=== PATIENT | male | born 1960 | race Caucasian/White ===

== ENCOUNTER 2020-10-23 10:15 | Emergency (ER) | payer OTHER, SELFPAY ==
--- NOTE | ~2020-10-23 | CT_ITS ---
EXAMINATION: CT abdomen pelvis wo con DATE: 10/23/2020 11:17 INDICATION: Left flank pain for one hour. History kidney stones. TECHNIQUE: Computed tomography (CT) of the abdomen and pelvis was performed without intravenous contr ast. Automated exposure control and iterative reconstruction technique were employed. Exam dose: 264 .74 mGy-cm total exam DLP. COMPARISON: 07/01/[address] abdomen pelvis FINDINGS: The lung bases are clear. Heart size is within normal limits. No pericardial or pleural eff usion. The liver, gallbladder, bile ducts, pancreas and pancreatic duct and spleen are unremarkable. Normal morphology of the adrenal glands. 5 mm nonobstructing mid left renal calculus. 6 mm nonobstructing lower pole left renal calculus. No right renal or left or right ureteral calculus or hydroureteronephrosis of either kidney. The urin xavier bladder appears unremarkable. Mild prostate enlargement and calcification. There is atherosclerotic calcification of the abdominal aorta and iliac arteries. No aneurysm is note d; the infrarenal abdominal aorta measures up to approximately 2.6 cm diameter. No intraperitoneal or retroperitoneal or pelvic mass lesion or adenopathy or ascites. No bowel obstruction, bowel wall thickening, pneumatosis or intraperitoneal free air. Normal appendix . No suspicious osteolytic or osteoblastic lesions are noted. There are degenerative changes of the tho racic and lumbar spine.. IMPRESSION: Nonobstructive left nephrolithiasis Reviewed, dictated and finalized at [facility]. Reviewed, dictated and finalized at [facility]. SNAKER
[2020-10-23 10:25] VITALS: BP 192/96; PULSE 64; RESP 18; TEMP 36.7; O2SAT 100
[2020-10-23 10:37] LABS: Hematocrit 41.9 % (42.0-52.0); Hemoglobin 14.8 g/dL (14.0-18.0); Immature Granulocyte Percent A 0.3 % (0-0.5); Lymphocytes Percent Auto 24.4 % (18.3-44.2); Mean Corpuscular HGB Conc 35.3 g/dl (32-36); Mean Corpuscular Hemoglobin 32.2 pg (26-34); Mean Corpuscular Volume 91.1 fl (80-100); Mean Platelet Volume 8.4 fl (7.4-10.4); Monocytes Percent Auto 9.4 % (2.6-8.5); Platelet Count Result 281 k/mm3 (150-375); Red Cell Distribution Width 12.9 % (11.5-14.5)
[2020-10-23 10:38] LABS: Basophils Absolute Auto 0.1 K/mm3 (0.0-0.1); Basophils Percent Auto 0.8 % (0.2-1.2); Eosinophils Absolute Auto 0.1 K/mm3 (0-0.3); Eosinophils Percent Auto 1.1 % (0-4.4); Immature Granulocyte Absolute 0.02 K/mm3 (0.00-0.031); Lymphocytes Absolute Auto 1.95 K/mm3 (0.9-3.2); Monocytes Absolute Auto 0.8 K/mm3 (0.1-0.6); Neutrophils Absolute Auto 5.1 K/mm3 (1.3-6.7)
[2020-10-23 10:52] LABS: Anion Gap 7 mmol/L (8-16); Blood Urea Nitrogen 12 mg/dL (9-20); Calcium 8.2 mg/dL (8.4-10.2); Carbon Dioxide 25 mmol/L (22-30); Chloride 106 mmol/L (98-107); Estimated CRCL calculation 85 ml/min; Estimated Glomerular Filt Rate > 60; Glucose 148 mg/dL (75-110); Potassium 4.2 mmol/L (3.4-5.0); Sodium 138 mmol/L (137-145)
--- NOTE | 2020-10-23 11:01 | ED.ABDPAIN ---
HPI - Abdominal Pain General Chief Complaint: Abdominal Pain Stated Complaint: lt flank pain, poss kidney stone Time Seen by Provider: 10/23/20 10:50 Source: patient Mode of arrival: ambulatory Limitations: no limitations History of Present Illness HPI narrative: This is a 60-year-old male that presents the emergency department for intermittent left flank pain over the last couple of hours. Reports history of kidney stones and that this feels similar. Reports intermittent, sharp pains in the left flank that radiate to the left side of the abdomen. Associated with nausea. Denies fever, vomiting, dysuria, hematuria. Related Data Allergies Allergy/AdvReac Type Severity Reaction Status Date / Time No Known Allergies Allergy Unknown Unverified 01/21/19 15:18 Review of Systems Review of Systems: Narrative: CONSTITUTIONAL: Denies fever GASTROINTESTINAL: Reports abdominal pain, nausea. Denies vomiting GENITOURINARY: Denies dysuria or hematuria. All systems reviewed & are unremarkable except as noted in HPI and below PMFSH Past Medical History Medical History (Updated 10/23/20 @ 13:23 by Cristin Otto PA-C) History of coronary artery disease History of hyperlipidemia History of hypertension Surgical History Surgical History (Updated 10/23/20 @ 11:03 by Cristin Otto PA-C) History of coronary artery stent placement Social History Social History (Updated 10/23/20 @ 11:03 by Cristin Otto PA-C) Smoking status: Current every day smoker Exam Narrative: Exam Narrative: GENERAL: Well-appearing, well-nourished, and in no acute distress. HEAD: Normocephalic, atraumatic. EYES: EOMI. CHEST: Clear to auscultation. No respiratory distress. No wheezes rales or rhonchi HEART: Regular rate and rhythm. No murmur heard. Normal peripheral pulses. ABDOMEN: Soft, nondistended, normal active bowel sounds. Mild tenderness to palpation throughout the left side of the abdomen, without guarding. No CVA tenderness EXTREMITIES: Normal range of motion. No edema. SKIN: Warm, dry, no rash. NEURO: No focal deficits. Alert and oriented x3. PSYCH: Normal mood and affect Course Vital Signs Vital signs: Vital Signs Temperature 98.1 F 10/23/20 10:25 Pulse Rate 64 10/23/20 10:25 Respiratory Rate 18 10/23/20 10:25 Blood Pressure 192/96 H 10/23/20 10:25 Pulse Oximetry 100 10/23/20 10:25 Temperature 98.1 F 10/23/20 10:25 Pulse Rate 64 10/23/20 10:25 Respiratory Rate 18 10/23/20 10:25 Blood Pressure 192/96 H 10/23/20 10:25 Pulse Oximetry 100 10/23/20 10:25 MDM - Abdominal Pain MDM Narrative Medical decision making narrative: Patient presents emergency department for left-sided flank pain that had started a couple hours prior to arrival. He is afebrile and nontoxic-appearing. Blood pressure elevated on arrival, this improved after pain medication administration. CBC is without leukocytosis. Metabolic panel without concerning findings. Patient does have red blood cells in the urine and 7-9 white blood cells. No leuk esterase or nitrates. He did have glucose in the urine, but his hemoglobin A1c was normal. CT scan of the abdomen and pelvis shows nonobstructive left nephrolithiasis. Patient reports his pain is now gone. He is stable and felt appropriate for the outpatient evaluation. Will be given urology for follow-up. Was given warnings to return to the ER Lab Data Attestation: I reviewed the patient's lab results. Result diagrams: 10/23/20 10:31 10/23/20 10:31 Labs: Lab Results 10/23/20 10/23/20 10/23/20 Range/Units 10:31 10:31 10:31 WBC 8.0 (4.5-10.0) K/mm3 RBC 4.60 (4.6-6.20) M/mm3 Hgb 14.8 (14.0-18.0) g/dL Hct 41.9 L (42.0-52.0) % MCV 91.1 (80-100) fl MCH 32.2 (26-34) pg MCHC 35.3 (32-36) g/dl RDW 12.9 (11.5-14.5) % Plt Count 281 (150-375) k/mm3 MPV 8.4 (7.4-10.4) fl Immature Gran % (Auto) 0.3
[2020-10-23] MEDS: ONDANSETRON INJ 4 MG/2 ML VIAL IV PUSH (11:09)
[2020-10-23] MEDS: SODIUM CHLORIDE 0.9% IV 1,000 ML 999 ML IV CONT (11:09)
[2020-10-23] MEDS: MORPHINE SULFATE (*CRX) 4 MG/ML INJ IV PUSH (11:09)
[2020-10-23 12:19] LABS: Add Urine Microscopic? YES; Appearance Urine Clear (Clear); Bilirubin Urine Negative (Negative); Blood Urine 2+ (Negative); Color Urine Yellow (Yellow); Glucose Urine UA 3+ mg/dL (Negative); Ketones Urine Negative (Negative); Leukocyte Esterase Ur Negative LEU/UL (Negative); Mucus Urine Rare /lpf; Nitrate Urine Negative (Negative); Protein Urine Negative (Negative); RBC Urine >75 /hpf (0-2); Specific Grav Ur 1.025 (1.001-1.035); Urobilinogen Urine Negative mg/dL (<2.0)
[2020-10-23 12:58] LABS: Hemoglobin A1C 5.6 % (<5.7)
[2020-10-23 13:32] VITALS: BP 140/72; PULSE 60; RESP 16; O2SAT 97
[2020-10-23 13:42] VITALS: BP 140/72; PULSE 60; RESP 14; O2SAT 97
== END 2020-10-23 13:40 | disposition home or self-care (01) ==
PROVIDERS: Physician Assistant; Emergency Provider Emergency Medicine; PCP Internal Medicine
DX: N20.0 Calculus of kidney (principal); I25.10 Atherosclerotic heart disease of native coronary artery without angina pectoris; E78.5 Hyperlipidemia, unspecified; I10 Essential (primary) hypertension; Z95.5 Presence of coronary angioplasty implant and graft; F17.200 Nicotine dependence, unspecified, uncomplicated
CPT/HCPCS: 36415; 74176; 80048; 81001; 83036; 85025; 87086; 96361; 96365; 96375; 99284; J0131; J2270; J2405; J7030

== ENCOUNTER 2020-11-05 13:46 | Inpatient (IN) | payer OTHER, SELFPAY ==
--- NOTE | ~2020-11-05 | XR_ITS ---
EXAMINATION: XR retrograde pyelo w/stent LT EXAM DATE: 11/06/2020 12:46 INDICATION: Left-sided pyelogram. TECHNIQUE: Fluoroscopy used during XR retrograde pyelo w/stent LT performed by Dr. Miguel Angel retana MD. The DAP for this procedure was 201 radcm2. FINDINGS: The left ureter was cannulated and injected. A double-J ureteral stent was positioned. Co rrelate with procedure note. IMPRESSION: Fluoroscopy used during XR retrograde pyelo w/stent LT. Reviewed, dictated and finalized at location [facility]. PATIONAL THERAPY DEPARTMENT CHAIR
--- NOTE | ~2020-11-05 | XR_ITS ---
EXAMINATION: XR abdomen/kub 1V INDICATION: Left urolithiasis and left flank pain TECHNIQUE: Supine views of the abdomen were obtained on 2 radiographs. COMPARISON: CT from today FINDINGS: The known left proximal ureteral stone appears to project just below the left L4 transverse process. Known left nephrolithiasis is not seen. There is partial opacification of the right-sided c ollecting system and bladder by contrast from earlier CT examination. Mild hip osteoarthritis is note d. The bowel gas pattern is normal. IMPRESSION: 1. Known left ureteral stone appears to project below the left L4 transverse process. Reviewed, dictated and finalized at location A. ECT DEVELOPMENT COORDINATOR IMPRESSION: 1. Known left ureteral stone appears to project below the left L4 transverse pr ocess.
--- NOTE | ~2020-11-05 | CT_ITS ---
EXAMINATION: CT abdomen pelvis wo/w con DATE: 11/05/2020 18:05 INDICATION: Left flank pain and hematuria TECHNIQUE: Computed tomography (CT) of the abdomen and pelvis was performed without intravenous contr ast. CT of the abdomen and pelvis was then performed with a total of 130 mL Omnipaque 350 intravenous contrast using a double-bolus technique for simultaneous opacification of the renal parenchyma and r enal collecting system. The dose-length product (DLP) was 1575.19 mGy-cm. Automated exposure control and iterative reconstruction technique were employed. COMPARISON: 10/23/2020 FINDINGS: The lung bases are clear. The heart size is normal. The liver, spleen, pancreas, gallbladde r, and adrenal glands are normal. There is a 7 mm stone in the left proximal ureter which causes mode rate left hydronephrosis. There is no appreciable contrast in the left collecting system. No suspicio us renal or urothelial lesion is identified. No stones are present in the right kidney, the right ure ter, or the bladder. There is a 6 mm nonobstructing stone of the left kidney lower pole. There is henry cified atherosclerosis of the aorta and many of the other arteries. No pathologically enlarged abdomi nal or pelvic lymph nodes are identified. The appendix is normal. There is moderate lumbar spondylosi s at L4-5. IMPRESSION: 1. Left proximal ureteral stone with obstructive uropathy. 2. Nonobstructing left nephrolithiasis. Reviewed, dictated and finalized at location A. ING TYPIST
--- NOTE | ~2020-11-05 | US_ITS ---
EXAMINATION: US carotid duplex BI DATE: 11/06/2020 15:23 INDICATION: Left carotid bruit TECHNIQUE: Grayscale, color Doppler, and pulsed Doppler images of the cervical carotid arteries were obtained. The degree of vessel stenosis is placed in one of the following categories: normal, <50%, 5 0-69%, >=70% but less than near-occlusion, near-occlusion, or total occlusion. Note that percent sten osis relative to normal distal artery lumen diameter is indirectly measured from velocity measurement s as described by Frank, et al. Radiology 2003; 229:340-346. COMPARISON: None. FINDINGS: RIGHT: The right common carotid artery (CCA) peak systolic velocity (PSV) is 96 cm/s. The right internal car otid artery (ICA) PSV is 81 cm/s. The right ICA end-diastolic velocity (EDV) is 22 cm/s. The right IC A/CCA PSV ratio is 0.8. Grayscale and color Doppler images yield an estimate of <50% diameter reducti on from plaque in the ICA. The external carotid artery (ECA) PSV is 70 cm/s. There is antegrade flow in the right vertebral artery. LEFT: The left CCA PSV is 126 cm/s. The left ICA PSV is 193 cm/s. The left ICA EDV is 42 cm/s. The left ICA /CCA PSV ratio is 1.5. Grayscale and color Doppler images yield an estimate of 50-69% diameter reduct ion from plaque in the ICA. The ECA PSV is 88 cm/s. There is antegrade flow in the left vertebral art anita. IMPRESSION: 1. <50% stenosis in the right internal carotid artery. 2. 50-69% stenosis in the left internal carotid artery. Reviewed, dictated and finalized at location A. RECT SALES EXEC
[2020-11-05 14:00] VITALS: BP 185/105; PULSE 85; RESP 16; TEMP 36.6; O2SAT 100
[2020-11-05 14:25] LABS: Basophils Absolute Auto 0.1 K/mm3 (0.0-0.1); Basophils Percent Auto 0.7 % (0.2-1.2); Eosinophils Absolute Auto 0.1 K/mm3 (0-0.3); Eosinophils Percent Auto 0.7 % (0-4.4); Hemoglobin 14.1 g/dL (14.0-18.0); Immature Granulocyte Absolute 0.04 K/mm3 (0.00-0.031); Immature Granulocyte Percent A 0.4 % (0-0.5); Lymphocytes Percent Auto 20.7 % (18.3-44.2); Mean Corpuscular HGB Conc 34.4 g/dl (32-36); Mean Corpuscular Hemoglobin 31.3 pg (26-34); Mean Corpuscular Volume 91.1 fl (80-100); Mean Platelet Volume 8.6 fl (7.4-10.4); Monocytes Absolute Auto 0.9 K/mm3 (0.1-0.6); Monocytes Percent Auto 8.5 % (2.6-8.5); Neutrophils Absolute Auto 7.3 K/mm3 (1.3-6.7); Platelet Count Result 288 k/mm3 (150-375); Red Cell Distribution Width 12.9 % (11.5-14.5); White Blood Count 10.6 K/mm3 (4.5-10.0)
[2020-11-05 14:36] LABS: Anion Gap 7 mmol/L (8-16); Blood Urea Nitrogen 15 mg/dL (9-20); Calcium 8.9 mg/dL (8.4-10.2); Carbon Dioxide 25 mmol/L (22-30); Chloride 108 mmol/L (98-107); Estimated CRCL calculation 65 ml/min; Estimated Glomerular Filt Rate > 60; Glucose 109 mg/dL (75-110); Potassium 4.4 mmol/L (3.4-5.0); Sodium 140 mmol/L (137-145)
[2020-11-05 15:26] LABS: Add Urine Microscopic? YES; Appearance Urine Clear (Clear); Bilirubin Urine Negative (Negative); Blood Urine 3+ (Negative); Color Urine Yellow (Yellow); Glucose Urine UA 1+ mg/dL (Negative); Ketones Urine Negative (Negative); Leukocyte Esterase Ur Negative LEU/UL (Negative); Mucus Urine Rare /lpf; Nitrate Urine Negative (Negative); Protein Urine 1+ mg/dL (Negative); RBC Urine >75 /hpf (0-2); Specific Grav Ur 1.025 (1.001-1.035); Squamous Epithelial Cell Urine Rare /hpf (Few); Urobilinogen Urine Negative mg/dL (<2.0)
[2020-11-05] MEDS: fentaNYL CITRATE INJ (*CRX) 100 MCG/2 ML VIAL 50 MCG IV PUSH ×4 (15:49→21:46)
[2020-11-05] MEDS: PROCHLORPERAZINE EDISYLATE 10 MG/2 ML VIAL IV PUSH (15:50)
--- NOTE | 2020-11-05 17:00 | PC.NURSE ---
Called CT scan to inquire about pts CT scan. Was told that they were aware of orders and will get to it.
[2020-11-05 17:22] VITALS: BP 195/86; PULSE 75; RESP 18; O2SAT 98
--- NOTE | 2020-11-05 17:26 | ED.MALEGU ---
HPI - Male Genitourinary General Chief complaint: Back Pain/Injury Stated complaint: Kidney Stones Time Seen by Provider: 11/05/20 14:18 Source: patient Mode of arrival: ambulatory Limitations: no limitations History of Present Illness HPI Narrative: 60-year-old male Seen here recently for flank pain found to be from renal colic Since that time he has intermittently had hematuria Notably he takes Brilinta and noac because of heart stents He is supposed to see Dr. Campa tomorrow for some type of procedure but is not sure what Despite the intermittent hematuria, he had had very little pain since his previous evaluation, however today at work he was suddenly floored by a severe left-sided pain It is waxed and waned since onset but never resolved, it has slightly moved from the flank more into the left lower quadrant Does not have a fever or dysuria, he has some nausea but did not vomit Related Data Allergies Allergy/AdvReac Type Severity Reaction Status Date / Time No Known Allergies Allergy Unknown Unverified 01/21/19 15:18 Review of Systems Review of Systems: All systems reviewed & are unremarkable except as noted in HPI and below Constitutional: Constitutional: Denies chills, Denies fatigue, Denies fever(s), Denies headache(s) and Denies weakness Eyes: Eyes: Reports no additional eye complaints and Denies change in vision ENT: Denies headache(s), Denies epistaxis, Denies nasal congestion and Denies sore throat Cardiovascular: Cardiovascular: Denies chest pain, Denies leg edema, Denies palpitations and Denies dyspnea Respiratory: Respiratory: Denies cough, Denies dyspnea and Denies wheezing Gastrointestinal: Gastrointestinal: Reports abdominal pain, Denies diarrhea, Reports nausea and Denies vomiting Genitourinary: Genitourinary: Reports hematuria, Denies dysuria and Denies urinary frequency Musculoskeletal: Musculoskeletal: Reports back pain, Denies deformity, Denies arthralgias, Denies joint swelling, Denies muscle weakness and Denies numbness Integumentary/Breasts: Skin/Breast: Denies rash and Denies wounds Neurologic: Denies headache(s), Denies focal weakness, Denies numbness and Denies weakness Psychiatric: Psychiatric: Reports no additional psychiatric complaints Endocrine: Endocrine: Denies fatigue and Denies palpitations Hematologic/Lymphatic: Hematologic/Lymphatic: Denies easy bleeding and Denies easy bruising Allergic/Immunologic: Allergic/Immunologic: Denies wheezing PMFSH Past Medical History Medical History (Updated 11/05/20 @ 19:35 by Hoang Tamayo MD) History of coronary artery disease History of hyperlipidemia History of hypertension Surgical History Surgical History (Updated 10/23/20 @ 11:03 by Cristin Otto PA-C) History of coronary artery stent placement Social History Social History (Updated 10/23/20 @ 11:03 by Cristin Otto PA-C) Smoking status: Current every day smoker Exam Const: General: well developed, alert and awake Nutritional Appearance: well nourished Orientation/consciousness: patient oriented x3 (alert) Limitations: no limitations HENMT: Head: normocephalic and atraumatic Ears: external ears normal General nose exam: No nasal discharge present and no epistaxis Face and sinus: face symmetric Eyes: Conjunctivae: conjunctivae normal Sclera: sclerae normal EOM: EOMs intact bilaterally Neck: Neck: normal visual inspection, supple and no JVD Chest: Chest palpation & inspection: deferred Resp: Effort & Inspection: normal respiratory effort Auscultation: clear to auscultation bilaterally, no rales, no rhonchi, no wheezes and other (BS =) Cardio: Rate: regular rate Rhythm: regular rhythm Heart sounds: no gallops and no murmurs GI: Inspection: normal to inspection GI Palp: Yes Soft to palpation, Yes Tenderness to palpation present (GI) (Diffusely tender in the left lower quadrant), No Guarding due to palpation present (GI) and No Rebound
[2020-11-05] MEDS: CIPROFLOXACIN 500 MG TAB PO (19:50)
[2020-11-05 20:27] VITALS: BP 171/94; PULSE 73; RESP 16; TEMP 37.3; O2SAT 96
[2020-11-05] MEDS: LACTATED RINGERS 1,000 ML 125 ML IV CONT (22:04)
[2020-11-05 22:33] VITALS: BP 170/78; PULSE 79; RESP 16; TEMP 37.1; O2SAT 97
[2020-11-05 22:39] VITALS: BMI 25.8
[2020-11-05] MEDS: FAMOTIDINE 20 MG/2 ML VIAL IV PUSH (23:05)
--- NOTE | 2020-11-05 23:50 | ADMGEN ---
This patient, Jaswinder Rome, was admitted to [facility] Room 220-02. Patient/family oriented to hospital policies and general routines including ID bracelet, bed and alarms, visiting hours, pain management, procedures, bathroom and other care routines, personal items, smoking policy, room service/diet, and visiting hours. Information on how to activate the Rapid Response Team has been discussed. Patient/Family are encouraged to report perceived risks to care and to ask questions if they do not understand what they are told or what they should do.
[2020-11-06] VITALS (14 sets, daily range): BP systolic 91–149; BP diastolic 57–82; PULSE 54–82; RESP 11–20; TEMP 36.3–37.1; O2SAT 96–100
[2020-11-06] MEDS: fentaNYL CITRATE INJ (*CRX) 100 MCG/2 ML VIAL 50 MCG IV PUSH ×2 (01:28→06:11)
[2020-11-06] MEDS: METOPROLOL TARTRATE 25 MG TABLET PO ×4 (02:11→16:46)
[2020-11-06] MEDS: LACTATED RINGERS 1,000 ML 125 ML IV CONT ×2 (05:56→22:39)
--- NOTE | 2020-11-06 08:37 | PM.IMHP ---
H&P: HPI History of Present Illness Date/Time: 11/06/20 08:37 Chief Complaint: abd pain Narrative: Jaswinder Rome is a 60 year old male with hx of kidney stones, CAD, HTN and CVA here for left flank pain and found to have left proximal ureteral stone with obstructive uropathy. Patient seen here in ED June 2019 for left flank pain. CT scan showing mild left hydroureter without evidence of stone. He did have nephrolithiasis noted. Was felt he passed a stone. He has had no recurrence of symptoms until October 23 2020 when he developed again left flank pain. He was seen here on October [address] scan showing nonobstructive left nephrolithiasis. He was treated symptomatically and discharged. Over the next few days he developed gross hematuria that ultimately resolved by October 29. Patient does take Brilinta, aspirin and Xarelto. No fever or chills. His pain resolved. He did see the urologist on Nov 02 with plans for further evaluation. However on November 04, patient developed left lower abdominal pain and left back and flank pain. He developed hematuria on that day that has ultimately resolved. He took ibuprofen with improvement initially but then his pain worsened. He denies any fever, chills, vision changes, hearing loss, dysphagia or odynophagia. He does have bilateral tinnitus which is chronic. He denies any chest pain or palpitations. No cough or shortness of breath. No dysgeusia or anosmia. No diarrhea or constipation. Denies dysuria. He did have some nausea with the pain but no vomiting. No numbness, tingling or weakness in his arms or legs. His only residual problems from the stroke was vision changes that have ultimately resolved. Patient presented to the ED because of persistent pain. In the ED, patient had a blood pressure 185/105 otherwise was hemodynamically stable. Greater than 75 red cells and 3+ blood. BUN was 15 creatinine 1.2. White count slightly elevated 10,600. CT of the abdomen pelvis showed left proximal ureteral stone with obstructive uropathy as well as nonobstructing left nephrolithiasis. Patient was treated with narcotics and was admitted for further care. Urology has been consulted Review of Systems Review of Systems: All systems reviewed & are unremarkable except as noted in HPI and below PMFSH Past Medical History Medical History Atrial fibrillation Essential hypertension, benign History of coronary artery disease stent place Jul 2019 History of CVA (cerebrovascular accident) History of hyperlipidemia History of nephrolithiasis Surgical History Surgical History History of coronary artery stent placement Hx of knee surgery left meniscus Hx of rotator cuff surgery left Family History Family History Father Acute myocardial infarction Hypertension Mother Cerebrovascular accident Hypertension Sibling Hypertension Social History Social History Social History: 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 He smokes half a pack a day and has smoked for about 40 years. He drinks 2-3 alcoholic drinks per month. No drug use. Lives with this son. Full code. He nominates his mother to be the individual would make medical decisions for him if he is unable. Smoking packs per day: 0.5 Smoking cigarettes per day: 10.0 Years smoked: 40 Smoking pack-years: 20.00 Smoking status: Current every day smoker Tobacco type: cigarettes Alcohol intake: current Drinks per week: 2 Substance use type: marijuana Other substance usage details: edible marijuana Last use: 2 weeks Spiritual care concerns: No Meds Home Medications and Allergies Home Medications Medication Instructions Recorded Confirmed Type amlodipine 10 mg PO DAILY 0
[2020-11-06] MEDS: LOSARTAN POTASSIUM 100 MG TABLET PO (08:50)
[2020-11-06] MEDS: FAMOTIDINE 20 MG/2 ML VIAL IV PUSH ×2 (08:50→20:55)
[2020-11-06] MEDS: amLODIPine BESYLATE 5 MG TABLET 10 MG PO (08:50)
--- NOTE | 2020-11-06 09:30 | WPDURCON ---
Assessment and Plan Assessment and plan (1) Obstructive uropathy: Code(s): N13.9 - Obstructive and reflux uropathy, unspecified Status: Acute Assessment and Plan: Obtain Consent: Cystoscopy, left ureteroscopy with possible stone extraction, left stent placement, left retrograde pyelogram, possible holmium laser. Keep NPO. Plan to go to the OR today. (2) Ureterolithiasis: Code(s): N20.1 - Calculus of ureter Status: Acute (3) Left renal stone: Code(s): N20.0 - Calculus of kidney Status: Acute Assessment and Plan: 6mm left not visible on KUB. (4) Gross hematuria: Code(s): R31.0 - Gross hematuria Status: Acute Assessment and Plan: Resolved, likely a result of the stones as the CT urogram was otherwise negative and Cysto in office on 11/02/2020 was also negative. Will monitor as an outpatient. Urology Consult Note HPI Date Seen: 11/06/20 Requesting Physician: Paulo Bedolla MD Primary Care Provider: Sebastian LeonMD Family Provider: Sebastian LeonMD Consult Narrative Narrative: Jaswinder Rome is a 60 year old male who presented to the ED initially with gross hematuria on 10/23/2020, He had a non contrast CT which revealed two non obstructive stones in the left kidney, but was otherwise urologically normal. He was discharged home and followed up with Dr. Rivera on 11/02/2020 for a cystoscope in the office which was normal, but a CT Urogram was ordered for today to complete his workup for gross hematuria. Unfortunately, on Monday he developed gross hematuria again and severe left flank pain Monday at work which sent him home early. He tried to go back to work yesterday but had to leave after lunch d/t the ongoing severe, intermittent left flank pain. He had a repeat CT scan in the ER with and without contrast which revealed a 7mm left proximal ureteral stone and a 6mm left non obstructive stone. KUB shows the proximal ureteral stone only. WBC Is 10.6, Creatinine is 1.20, UA shows only hematuria otherwise not suspicious for UTI. He c/o of left flank pain, nausea with pain, no vomiting, and pelvic/scrotal pressure. He denies hematuria at this time, frequency or dysuria. Review of Systems Cardiovascular: Cardiovascular: Denies chest pain Respiratory: Respiratory: Reports no additional respiratory complaints Gastrointestinal: Gastrointestinal: Reports abdominal pain, Reports nausea and Denies vomiting Genitourinary: Genitourinary: Reports hematuria, Denies dysuria, Reports flank pain, Reports testicular pain, Denies urinary frequency, Denies urinary hesitancy and Denies urinary urgency [facility] Past Medical History Medical History Atrial fibrillation Essential hypertension, benign History of coronary artery disease stent place Jul 2019 History of CVA (cerebrovascular accident) History of hyperlipidemia History of nephrolithiasis Surgical History Surgical History History of coronary artery stent placement Hx of knee surgery left meniscus Hx of rotator cuff surgery left Family History Family History Father Acute myocardial infarction Hypertension Mother Cerebrovascular accident Hypertension Sibling Hypertension Social History Social History Social History: 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 He smokes half a pack a day and has smoked for about 40 years. He drinks 2-3 alcoholic drinks per month. No drug use. Lives with this son. Full code. He nominates his mother to be the individual would make medical decisions for him if he is unable. Smoking packs per day: 0.5 Smoking cigarettes per day: 10.0 Years smoked: 40 Smoking pack-years: 20.00 Smoking status: Current every day smoker Tob
[2020-11-06 10:30] LABS: Alanine Aminotransferase 17 U/L (4-50); Albumin Level 3.5 g/dL (3.5-5.1); Alkaline Phosphatase 72 U/L (38-126); Aspartate Amino Transferase 25 U/L (17-59); Bilirubin,Total 0.7 mg/dL (0.2-1.3); Cholesterol 192 mg/dL (0-200); HDL Direct 32 mg/dL; Triglycerides 336 mg/dL (<150)
[2020-11-06 10:47] LABS: LDL Cholesterol Direct 78 mg/dL
[2020-11-06 11:03] LABS: Parathyroid Intact 40.8 pg/mL (7.5-53.5)
--- NOTE | 2020-11-06 11:27 | WPDHPUPDATE1 ---
History and Physical Update Update Date/Time: 11/06/20 11:27 History and Physical has been reviewed, including an updated exam of the patient. There are NO changes in the patient's condition. Risks, benefits, and alternatives have been discussed and questions answered. Patient agrees to proceed with procedure.
--- NOTE | 2020-11-06 11:28 | WPDHPUPDATE1 ---
History and Physical Update Update Date/Time: 11/06/20 11:28 History and Physical has been reviewed, including an updated exam of the patient. There are NO changes in the patient's condition. Risks, benefits, and alternatives have been discussed and questions answered. Patient agrees to proceed with procedure.
--- NOTE | 2020-11-06 11:31 | PC.NURSE ---
Pt off floor to surgery at 1030
--- NOTE | 2020-11-06 11:44 | WPDANESEPPF ---
Anes - Initial Pre Proc Eval Procedure: Operation Date: 11/06/20 11:30 Proposed Procedures p CYSTOSCOPY,LEFT URETEROSCOPY,LEFT RETROGRADE PYELOGRAM,STONE EXTRACTION,POSSIBLE HOLMIUM LASER,POSSIBLE STENT PLACEMENT - Miguel Angel Campa MD Date/Time: 11/06/20 11:44 Surgeon: Paulo Bedolla MD Pre Op Diagnosis: Ureterolithiasis Patient Data Age: 60 Gender: M Height: 6 ft Weight: 86.4 kg Last Vital Signs Temp 98.5 F 11/06/20 10:52 Pulse 61 11/06/20 10:52 Resp 16 11/06/20 10:52 BP 149/71 H 11/06/20 10:52 Pulse Ox 98 11/06/20 10:52 Allergies Allergy/AdvReac Type Severity Reaction Status Date / Time No Known Allergies Allergy Unknown Unverified 11/05/20 22:53 Home Medications Medication Instructions Recorded Confirmed Type amlodipine 10 mg PO DAILY 11/05/20 11/05/20 History aspirin [Adult Low Dose Aspirin] 81 mg PO DAILY 11/05/20 11/05/20 History losartan 100 mg PO DAILY 11/05/20 11/05/20 History metoprolol tartrate 25 mg PO TID 11/05/20 11/05/20 History rivaroxaban [Xarelto] 20 mg PO DAILY 11/05/20 11/05/20 History ticagrelor [Brilinta] 90 mg PO BID 11/05/20 11/05/20 History Laboratory Tests 11/05/20 11/05/20 11/05/20 14:13 14:13 15:00 WBC 10.6 K/mm3 H K/mm3 (4.5-10.0) RBC 4.50 M/mm3 L M/mm3 (4.6-6.20) Hgb 14.1 g/dL g/dL (14.0-18.0) Hct 41.0 % L % (42.0-52.0) MCV 91.1 fl fl (80-100) MCH 31.3 pg pg (26-34) MCHC 34.4 g/dl g/dl (32-36) RDW 12.9 % % (11.5-14.5) Plt Count 288 k/mm3 k/mm3 (150-375) MPV 8.6 fl fl (7.4-10.4) Immature Gran % (Auto) 0.4 % % (0-0.5) Neut % (Auto) 69.0 % % (45.5-73.1) Lymph % (Auto) 20.7 % % (18.3-44.2) [place] % (Auto) 8.5 % % (2.6-8.5) Eos % (Auto) 0.7 % % (0-4.4) Baso % (Auto) 0.7 % % (0.2-1.2) Lymph # (Auto) 2.20 K/mm3 K/mm3 (0.9-3.2) [place] # (Auto) 0.9 K/mm3 H K/mm3 (0.1-0.6) Eos # (Auto) 0.1 K/mm3 K/mm3 (0-0.3) Baso # (Auto) 0.1 K/mm3 K/mm3 (0.0-0.1) Abs Immat Gran (auto) 0.04 K/mm3 H K/mm3 (0.00-0.031) Absolute Neuts (auto) 7.3 K/mm3 H K/mm3 (1.3-6.7) Absolute Nucleated RBC 0.0 K/mm3 K/mm3 (0.0-0.012) Nucleated RBC % 0.0 % % (0.0-0.2) Sodium 140 mmol/L mmol/L (137-145) Potassium 4.4 mmol/L mmol/L (3.4-5.0) Chloride 108 mmol/L H mmol/L (98-107) Carbon Dioxide 25 mmol/L mmol/L (22-30) Anion Gap 7 mmol/L L mmol/L (8-16) BUN 15 mg/dL mg/dL (9-20) Creatinine 1.20 mg/dL mg/dL (0.7-1.3) Estim Creat Clear Calc 65 ml/min ml/min Estimated GFR > 60 (59 - ) Glucose 109 mg/dL mg/dL (75-110) Calcium 8.9 mg/dL mg/dL (8.4-10.2) Total Bilirubin Direct Bilirubin AST ALT Alkaline Phosphatase Total Protein Albumin Triglycerides Cholesterol LDL Cholesterol Direct HDL Direct PTH Intact Urine Color Yellow (Yellow) Urine Appearance Clear (Clear) Urine pH 5.0 (5.0-9.0) Ur Specific [place] 1.025 (1.001-1.035) Urine Protein 1+ mg/dL H mg/dL (Negative) Urine Glucose (UA) 1+ mg/dL H mg/dL (Negative) Urine Ketones Negative mg/dL mg/dL (Negative) Ur Blood (Man) 3+ H (Negative) Urine Nitrate Negative (Negative) Urine Bilirubin Negative (Negative) Urine Urobilinogen Negative mg/dL mg/dL (<2.0) Leukocyte Esterase Rfl Negative CARMENZA/UL CARMENZA/UL (Negative) Urine RBC >75 /hpf H /hpf (0-2) Urine WBC 4-6 /hpf H /hpf Ur Squamous Epith Cells Rare /hpf /hpf (Few)
[2020-11-06] MEDS: LACTATED RINGERS 1,000 ML 30 ML IV CONT (11:50)
[2020-11-06] MEDS: ceFAZolin 2 GM/D5W 50 ML 2 GM/50 ML BAG IVPB (11:54)
[2020-11-06] MEDS: LIDOCAINE HCL 2% GEL UROJET 10 ML PKG MUCOUS MEM (12:08)
--- NOTE | 2020-11-06 12:39 | P.OP_ITS ---
Procedure Note - Detailed Date of procedure: 11/06/20 Pre-op diagnosis: Ureterolithiasis Post-op diagnosis: same (Left ureteral calculus) Procedure performed: Cystoscopy, left retrograde pyelogram, left ureteroscopy with stone extraction holmium laser, left ureteral stent placement 4.8 Malaysian contour Description of procedure: Patient is taken the operative suite and correctly identified. Once anesthesia obtained he is placed in dorsal lithotomy position and prepped and draped usual sterile fashion. Nineteen Malaysian scope was inserted into the bladder. There is no tumors noted. Both ureteral orifices normal anatomic position. Bentson wire was inserted into left ureteral orifice. We then dilated with an 810 dilator then placed a ureteral access sheath. This went in easily. Mini flexible ureteroscope was then placed in stone was visualized. It was too large to retrieve 1 piece. We then used a holmium laser to fragment into multiple small pieces. These were retrieved were sent for analysis. Some of the fragments flushed back up into the kidney. We were able to retrieve these with any other visible stones. Pyelogram was then performed to confirm placement of the stent. 4.8 Malaysian contour stent was then placed with the proximal end coiled in the renal pelvis and the distal in the bladder. Bladder was drained. 2% viscous lidocaine was inserted into the urethra and patient is taken recovery room stable condition. He will follow up in about a week's time for stent removal. Anesthesia: GLMA Surgeon: Miguel Angel Campa MD Drains: Yes Packing: No Pathology: yes Complications: No immediate complications Condition: stable Disposition: PACU
[2020-11-06] MEDS: HYDROcodone/acetaminophen (*CRX) 5-325 MG TABLET 1 TAB PO ×2 (18:32→22:44)
[2020-11-07 05:25] VITALS: BP 142/66; PULSE 55; RESP 16; TEMP 36.1; O2SAT 98
[2020-11-07 06:13] LABS: Anion Gap 1 mmol/L (8-16); Blood Urea Nitrogen 15 mg/dL (9-20); Calcium 7.8 mg/dL (8.4-10.2); Carbon Dioxide 30 mmol/L (22-30); Chloride 106 mmol/L (98-107); Estimated CRCL calculation 77 ml/min; Estimated Glomerular Filt Rate > 60; Glucose 105 mg/dL (75-110); Potassium 4.1 mmol/L (3.4-5.0); Sodium 137 mmol/L (137-145)
[2020-11-07 08:00] VITALS: PULSE 60; RESP 16; O2SAT 98
[2020-11-07] MEDS: HYDROcodone/acetaminophen (*CRX) 5-325 MG TABLET 1 TAB PO (08:28)
[2020-11-07] MEDS: LACTATED RINGERS 1,000 ML 125 ML IV CONT (08:33)
[2020-11-07 10:19] VITALS: PULSE 60
[2020-11-07] MEDS: METOPROLOL TARTRATE 25 MG TABLET PO (10:19)
[2020-11-07] MEDS: amLODIPine BESYLATE 5 MG TABLET 10 MG PO (10:19)
[2020-11-07] MEDS: ROSUVASTATIN 10 MG TABLET PO (10:19)
[2020-11-07] MEDS: ASPIRIN 81 MG ENTERIC TABLET PO (10:19)
[2020-11-07] MEDS: LOSARTAN POTASSIUM 100 MG TABLET PO (10:21)
[2020-11-07] MEDS: FAMOTIDINE 20 MG/2 ML VIAL IV PUSH (10:22)
--- NOTE | 2020-11-07 11:51 | PM.DS ---
DS: Admitting Diagnosis Admitting Diagnosis Admitting Diagnosis: Abd pain DS: Discharge Diagnosis Discharge Diagnosis (1) Obstructive uropathy: Code(s): N13.9 - Obstructive and reflux uropathy, unspecified Status: Acute Assessment and Plan: Patient probably passed a stone on October 23 given his pain and then subsequent hematuria; symptoms resolved. He presents with recurrence of abd pain and hematuria. CT scan this admission showing left proximal ureteral stone with obstructive uropathy. Started on IV fluids and urology consulted. He underwent cystoscopy, left retrograde pyelogram, left ureteroscopy with stone extraction holmium laser, left ureteral stent placement. Pain better controlled. Some hematuria initially after the procedure but nothing since. (2) Ureterolithiasis: Code(s): N20.1 - Calculus of ureter Status: Acute Assessment and Plan: As above. (3) Atrial fibrillation: Qualifiers: Atrial fibrillation type: paroxysmal Qualified Code(s): I48.0 - Paroxysmal atrial fibrillation Code(s): I48.91 - Unspecified atrial fibrillation Status: Inactive Assessment and Plan: Patient states he has been able to maintain normal sinus rhythm without issue. He never required cardioversion. No evidence of recurrence clinically. Resume anticoagulation at discharge. (4) Essential hypertension, benign: Code(s): I10 - Essential (primary) hypertension Status: Acute Assessment and Plan: Blood pressure markedly elevated on admission probably related to pain. Blood pressure became better controlled with pain control. We continued current medications with losartan, Norvasc metoprolol. (5) History of coronary artery disease: Code(s): Z86.79 - Personal history of other diseases of the circulatory system Status: Acute Assessment and Plan: Remained stable We continued current medical management with losartan and metoprolol. We resumed aspirin; Brilinta resumed at discharge. Recommended patient discuss with Cardiology about changing to dual therapy. TC 192, TG 336, LDL 78, HDL 32. LFTs normal. Crestor started. Educated multiple times about benefit of smoking cessation. (6) History of CVA (cerebrovascular accident): Code(s): Z86.73 - Personal history of transient ischemic attack (TIA), and cerebral infarction without residual deficits Status: Acute Assessment and Plan: Patient with hx of CVA related to cardiac stent placement. Minimal residual sequela. Carotid US performed due to bruit which showing <50% on the right and 50-69% on the left. A copy of the report given to the patient so his PCP can follow this. Patient instructed to discuss with PCP. Educated multiple times about benefit of smoking cessation. (7) Tobacco abuse: Code(s): Z72.0 - Tobacco use Status: Acute Assessment and Plan: Patient educated about the benefits of smoking cessation. DS: Summary Hospital Course Reason for hospitalization: 60 year old male with hx of kidney stones, CAD, HTN and CVA here for left flank pain and found to have left proximal ureteral stone with obstructive uropathy. Please see H&P for details Hospital Course: Please see above for details of hospital course. Status at Discharge Cognitive/behavioral status at discharge: Patient is stable for discharge Time Spent with Patient Time attestation: Total time spent providing and/or coordinating discharge services: 34 minutes Time spent: Greater than 30 minutes Specific discharge activities: Patient Education Exam Narrative: Exam Narrative: AF 96.9 142/66 60 16 98% ra Gen - NARD Chest - lungs are clear to auscultation bilaterally. CV - RRR S1/S2 Abd - abdomen was soft. NT/ND, +BS Ext - no edema. Neuro - nonfocal Psych - normal mood and affect. Patient is pleasant and cooperative. Skin - warm and dry. D
--- NOTE | 2020-11-07 12:56 | PC.NURSE ---
Patient discharge home, discharge instructions reviewed, patient verbalizes understanding. Pt discharged off floor in wheelchair.
== END 2020-11-07 13:00 | disposition home or self-care (01) | DRG 661 ==
LOC: ANHED 19:36 → ANHTRC 21:05
PROVIDERS: Emergency Medicine; Urology; Admitting Provider Internal Medicine; Emergency Provider Emergency Medicine; PCP Internal Medicine; Visit Provider Internal Medicine
PROC: 0TC78ZZ Extirpation of Matter from Left Ureter, Via Natural or Artificial Opening Endoscopic (ICD-10-PCS; CPT 52352; principal; 2020-11-06 11:30)
DX: N20.1 Calculus of ureter (principal); I25.10 Atherosclerotic heart disease of native coronary artery without angina pectoris; I10 Essential (primary) hypertension; Z86.73 Personal history of transient ischemic attack (TIA), and cerebral infarction without residual deficits; I48.91 Unspecified atrial fibrillation; Z72.0 Tobacco use; N20.0 Calculus of kidney
CPT/HCPCS: 36415; 74018; 74178; 74420; 80048; 80061; 80076; 81001; 82365; 83970; 85025; 88300; 93880; 96374; 96375; 99285; A9270; C1758; C1769; C1894; C2617; J0690; J0780; J1100; J2250; J2370; J2405; J2704; J3010; J7120; Q9966; Q9967

== ENCOUNTER 2020-12-29 07:38 | Outpatient (CLI) | payer OTHER, SELFPAY ==
--- NOTE | ~2020-12-29 | XR_ITS ---
EXAMINATION: XR abdomen/kub 1V EXAM DATE: 12/29/2020 07:51 INDICATION: Left ureteral stone follow-up. TECHNIQUE: Frontal projection(s) of the abdomen for interpretation. Comparison is made to prior exami nation from 11/05/2020. FINDINGS: There is expected amount of colonic stool and gas. No small bowel dilation, nonobstructiv e bowel gas pattern. Possible small left inferior calyceal stone, indicated. There is no organomeg prema suspected. There are bony degenerative changes. Lung bases unremarkable. IMPRESSION: Possible left nephrolithiasis. Reviewed, dictated and finalized at location A.
== END 2020-12-29 07:39 | disposition home or self-care (01) ==
LOC: ANHIMG 07:41
PROVIDERS: Visit Provider Urology
DX: N20.1 Calculus of ureter (principal)
CPT/HCPCS: 74018

== ENCOUNTER 2022-01-24 11:07 | Inpatient (IN) | payer OTHER, SELFPAY ==
[2022-01-24] VITALS (21 sets, daily range): BP systolic 119–185; BP diastolic 65–93; PULSE 54–74; RESP 11–22; TEMP 36–36.6; O2SAT 96–100; BMI 25.7
--- NOTE | ~2022-01-24 | CT_ITS ---
EXAMINATION: CT abdomen pelvis w con EXAM DATE: 01/24/2022 13:12 INDICATION: Abdominal pain. Clinical concern for pancreatitis. TECHNIQUE: Spiral CT of the abdomen and pelvis was performed following intravenous injection of 100 m L Omnipaque 350. Axial, coronal and sagittal images of the abdomen and pelvis were reviewed. The do se-length product (DLP) for this examination was 186.51 mGy-cm. The exposure was tailored according to patient size (auto mA exposure control), and iterative reconstruction (ASIR) was used as additiona l dose reduction technique. Comparison is made to prior examination from 11/05/2020. FINDINGS: The liver, spleen, adrenal glands and pancreas are unremarkable. Gallbladder is unremarkab le. No biliary obstruction. Portal and splenic veins are patent. Kidneys enhance symmetrically. T here is no hydronephrosis. Scarring lower pole of the left kidney which could be from prior cryoablat ion, infection or infarction. Mild prostatomegaly. Small bladder stone. There is no retroperitonea l or pelvic lymphadenopathy. There is moderate scattered arteriosclerotic disease. The appendix is normal. The stomach and small bowel are unremarkable. There is expected amount of c olonic stool. No free intraperitoneal gas. The heart is normal in size. There are no pericardial or pleural effusions. The lung bases are unremarkable. There are no osteoblastic or osteolytic les ions identified. IMPRESSION: 1. No acute intra-abdominal findings. 2. Left renal scarring. Reviewed, dictated and finalized at location B.
--- NOTE | ~2022-01-24 | XR_ITS ---
EXAMINATION: XR chest 1V portable INDICATION: Left-sided chest pain TECHNIQUE: Portable AP chest at 1123 hours COMPARISON: None available FINDINGS: The lungs are free of acute opacities. There is no pleural effusion or pneumothorax. The ca rdiomediastinal silhouette is normal. IMPRESSION: 1. No acute cardiopulmonary abnormality. Reviewed, dictated and finalized at location A.
--- NOTE | 2022-01-24 11:10 | ECG_ITS ---
Measurements Intervals [place] Rate: 68 P: 34 [place]: 175 QRS: 74 QRSD: 102 T: 47 QT: 356 QTc: 380 Interpretive Statements SINUS RHYTHM SEPTAL MYOCARDIAL INFARCTION , OF INDETERMINATE AGE [40+ ms Q WAVE IN V1/V2] ABNORMAL ECG NO PREVIOUS ECG AVAILABLE FOR COMPARISON Electronically Signed On 01-24-2022 15:41:01 CDT by Joshua Graham M.D.
[2022-01-24 11:35] LABS: Basophils Absolute Auto 0.1 K/mm3 (0.0-0.1); Basophils Percent Auto 0.7 % (0.2-1.2); Eosinophils Absolute Auto 0.1 K/mm3 (0-0.3); Eosinophils Percent Auto 0.9 % (0-4.4); Hematocrit 42.1 % (42.0-52.0); Hemoglobin 14.2 g/dL (14.0-18.0); Immature Granulocyte Absolute 0.01 K/mm3 (0.00-0.031); Immature Granulocyte Percent A 0.1 % (0-0.5); Lymphocytes Absolute Auto 2.58 K/mm3 (0.9-3.2); Lymphocytes Percent Auto 38.4 % (18.3-44.2); Mean Corpuscular HGB Conc 33.7 g/dl (32-36); Mean Corpuscular Volume 91.9 fl (80-100); Mean Platelet Volume 8.5 fl (7.4-10.4); Monocytes Absolute Auto 0.5 K/mm3 (0.1-0.6); Neutrophils Absolute Auto 3.5 K/mm3 (1.3-6.7); Neutrophils Percent Auto 51.9 % (45.5-73.1); Platelet Count Result 257 k/mm3 (150-375); Red Blood Count 4.58 M/mm3 (4.6-6.20); Red Cell Distribution Width 13.2 % (11.5-14.5); White Blood Count 6.7 K/mm3 (4.5-10.0)
[2022-01-24 11:45] LABS: INR 0.9; Prothrombin Time 12.1 Seconds (11.1-14.7)
[2022-01-24 11:46] LABS: Partial Thromboplastin Time 31.3 SECONDS (22.3-36.8)
[2022-01-24 11:47] LABS: Alanine Aminotransferase 22 U/L (4-50); Albumin Level 4.4 g/dL (3.5-5.1); Alkaline Phosphatase 110 U/L (38-126); Anion Gap 8 mmol/L (8-16); Aspartate Amino Transferase 26 U/L (17-59); Bilirubin,Total 0.3 mg/dL (0.2-1.3); Blood Urea Nitrogen 14 mg/dL (9-20); Calcium 8.1 mg/dL (8.4-10.2); Carbon Dioxide 21 mmol/L (22-30); Chloride 108 mmol/L (98-107); Estimated CRCL calculation 106 ml/min; Estimated Glomerular Filt Rate > 60; Glucose 110 mg/dL (65-110); Potassium 4.1 mmol/L (3.4-5.0); Sodium 137 mmol/L (137-145)
[2022-01-24] MEDS: NITROGLYCERIN OINTMENT 1 INCH DOSE TRANSDERM (12:00)
[2022-01-24 12:05] LABS: Lipase 2029 U/L (23-300)
[2022-01-24 12:17] LABS: Troponin I 0.018 ng/mL (0.000-0.034)
--- NOTE | 2022-01-24 12:39 | ED.CHESTPAIN ---
HPI - Chest Pain General Chief Complaint: Chest Pain Stated Complaint: CP Time Seen by Provider: 01/24/22 11:14 Source: patient Mode of arrival: EMS Limitations: no limitations History of Present Illness HPI narrative: Pt was at work doing routine activity when he developed substernal CP radiating down left arm. Pt says this feels similar to his OR in the past. Pt says he got nitro and ASA and the pain resolved. 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 Onset (ago): minute(s) (20) Timing of current episode: now resolved Prior episodes: Yes Pain location: substernal Pain radiation: left arm Severity: moderate Quality: heaviness Relieving factors: nitroglycerin Exacerbating factors: nothing Treatment prior to arrival: aspirin and nitroglycerin Risk Factors Coronary artery disease risk factors: smoking history, hypertension and family history of CAD before age 50 Related Data Home Medications Medication Instructions Recorded Confirmed Brilinta 90 mg PO HS 11/05/20 01/24/22 amlodipine 10 mg PO HS 11/05/20 01/24/22 aspirin 81 mg PO HS 11/05/20 01/24/22 losartan 100 mg PO HS 11/05/20 01/24/22 metoprolol tartrate 25 mg PO Q12H 11/05/20 01/24/22 Allergies Allergy/AdvReac Type Severity Reaction Status Date / Time No Known Allergies Allergy Unknown Verified 01/24/22 11:12 Review of Systems Review of Systems: All systems reviewed & are unremarkable except as noted in HPI and below PMFSH Past Medical History Medical History Atrial fibrillation Essential hypertension, benign History of coronary artery disease stent place Jul 2019 History of CVA (cerebrovascular accident) History of hyperlipidemia History of nephrolithiasis Surgical History Surgical History History of coronary artery stent placement Hx of knee surgery left meniscus Hx of rotator cuff surgery left Family History Family History Father Acute myocardial infarction Hypertension Mother Cerebrovascular accident Hypertension Sibling Hypertension Social History Social History Social History: 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 He smokes half a pack a day and has smoked for about 40 years. He drinks 2-3 alcoholic drinks per month. No drug use. Lives with this son. Full code. He nominates his mother to be the individual would make medical decisions for him if he is unable. Smoking packs per day: 0.5 Smoking cigarettes per day: 10.0 Years smoked: 40 Smoking pack-years: 20.00 Smoking status: Light tobacco smoker Tobacco type: cigarettes Alcohol intake: current Drinks per week: 2 Substance use: current Substance use type: marijuana Other substance usage details: edible marijuana Last use: 2 weeks Spiritual care concerns: No Exam Const: General: no acute distress Orientation/consciousness: patient oriented x3 HENMT: Head: normal to inspection Eyes: Conjunctivae: conjunctivae normal EOM: EOMs intact bilaterally Neck: Neck: normal visual inspection and no lymphadenopathy Chest: Chest palpation & inspection: normal inspection of the chest Resp: Effort & Inspection: normal respiratory effort Auscultation: clear to auscultation bilaterally Cardio: Rate: regular rate Rhythm: regular rhythm GI: GI Palp: Yes Soft to palpation Auscultation: normal bowel sounds Skin: General skin exam: normal color Neuro: General: patient oriented x3, moves all extremities, no meningeal signs, no focal motor deficits and CN's II-XI intact bilaterally Speech: normal speech Extrem: General: normal to inspection and no pedal edema Psych: Appearance: grossly normal Mental Status: mental status grossly normal Thought content: Yes [place]
--- NOTE | 2022-01-24 14:30 | PM.IMHP ---
H&P: HPI History of Present Illness Date/Time: 01/24/22 14:30 Chief Complaint: Chest pain. 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 He was in his usual state of health when he went to work this morning. Not long prior to arrival he developed sudden onset of left-sided chest pain which started out as a dull discomfort before rapidly progressing to pretty significant heaviness. The pain radiated into his shoulder and down the left arm and improved after receiving sublingual nitroglycerin. He felt short of breath because the pain was so severe but he denies associated nausea, vomiting, sweats, and dizziness. Initial troponin on arrival was 0.018 and his EKG showed showed a sinus rhythm with a septal myocardial infarction of indeterminate age. Patient reports that his pain feels exactly like that he experienced prior to his CT, and he is being admitted in this setting for closer monitoring. It should also be noted that the patient's lipase was elevated (2028) and a subsequent CT of the abdomen and pelvis was unremarkable for acute process. He has no personal or family history of pancreatitis but as per HPI does have a history of GERD and Tabor esophagus though he has not had an EGD done for many years. In fact he has not had GERD symptoms for years until the last month or so when he developed early satiety, bloating, and increased gas related to mealtime. He remains on dual antiplatelet therapy with a baby aspirin and 90 mg Brilinta daily however he admits that he missed taking his medication last evening. Additionally he takes 800 mg of ibuprofen several times a day and has for many years due to arthritic pains in his feet, hands, and knees. He also drinks about 32 oz of coffee per day. He denies hematemesis, melena, and hematochezia. No history of peptic ulcer disease. Review of Systems Review of Systems: Twelve systems were reviewed. No fever, chills, or sweats. He denies cold and flu symptoms. No sick contacts. No orthopnea, PND, or lower extremity edema. Except as documented, all other systems were reviewed and are negative. [facility] Past Medical History Medical History (Updated 01/24/22 @ 21:50 by Jennifer Baca PA-C) Tabor esophagus Cerebrovascular accident (07/2019) Shower emboli post cardiac catheterization. No significant residual deficits. Coronary artery disease (07/2019) Status post CT and stent to the RCA. Essential hypertension Gastroesophageal reflux disease Hyperlipidemia Nephrolithiasis Paroxysmal atrial fibrillation Tobacco abuse Surgical History Surgical History (Updated 01/24/22 @ 21:46 by Jennifer Baca PA-C) History of arthroscopy of left knee History of cardiac catheterization History of coronary artery stent placement (07/2019) Drug-eluting stent to the mid RCA. History of cystoscopy (10/2020) With holmium laser and stone extraction with ureteral stent placement. History of repair of left rotator cuff Family History Family History Father Acute myocardial infarction Hypertension Mother Cerebrovascular accident Hypertension Sibling Hypertension Social History Social History (Updated 01/24/22 @ 21:48 by Jennifer Baca PA-C) Social History: and lives in [place] with his . 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 Smokes 0.5 to 1 packs of cigarettes a day for 40+ years. Drinks 10 to 12 beers and some shots about once or twice a month. Occasional marijuana in the form of edibles. No illicit substance use. Surrogate decision maker: Charito Rome, spouse. Code status: Full code.
[2022-01-24 15:04] LABS: SARS-CoV-2 RNA PCR Negative
--- NOTE | 2022-01-24 15:57 | ADMGEN ---
This patient, Jaswinder Rome, was admitted to IMU Room 200-01. Patient/family oriented to hospital policies and general routines including ID bracelet, bed and alarms, visiting hours, pain management, procedures, bathroom and other care routines, personal items, smoking policy, room service/diet, and visiting hours. Information on how to activate the Rapid Response Team has been discussed. Patient/Family are encouraged to report perceived risks to care and to ask questions if they do not understand what they are told or what they should do.
--- NOTE | 2022-01-24 18:09 | ECG_ITS ---
Measurements Intervals [place] Rate: 71 P: 51 [place]: 180 QRS: 80 QRSD: 100 T: 75 QT: 381 QTc: 414 Interpretive Statements SINUS RHYTHM SEPTAL MYOCARDIAL INFARCTION , OF INDETERMINATE AGE [40+ ms Q WAVE IN V1/V2] COMPARED TO ECG 01/24/2022 11:12:01 ST ELEVATION IN INFERIOR LEADS, ACUTE INJURY PATTERN ABNORMAL ECG NO SIGNIFICANT CHANGES Electronically Signed On 01-25-2022 18:00:28 CDT by Alessandro Stanley M.D.
[2022-01-24] MEDS: NITROGLYCERIN SL 0.4 MG TABLET SUBLINGUAL (18:11)
--- NOTE | 2022-01-24 18:23 | PC.NURSE ---
Pt's approached nursing station stating that Pt is having chest pain, like he had this morning. RN notified LUCIA Claros of situation. New order for 12 lead EKG, remove nitro patch, and administer SL Nitro x1, if BP allows. Pt's BP was 177/95, Nitro patch removed and SL Nitro administered.
[2022-01-24 18:35] LABS: Troponin I 0.054 ng/mL (0.000-0.034)
--- NOTE | 2022-01-24 20:33 | ECG_ITS ---
Measurements Intervals [place] Rate: 61 P: 44 [place]: 191 QRS: 81 QRSD: 105 T: 68 QT: 386 QTc: 391 Interpretive Statements SINUS RHYTHM SEPTAL MYOCARDIAL INFARCTION , OF INDETERMINATE AGE [40+ ms Q WAVE IN V1/V2] NONSPECIFIC ST ABNORMALITY ABNORMAL ECG Electronically Signed On 01-25-2022 18:04:29 CDT by Alessandro Stanley M.D.
[2022-01-24 21:26] LABS: Troponin I 0.059 ng/mL (0.000-0.034)
[2022-01-24] MEDS: PANTOPRAZOLE SODIUM IV 40 MG VIAL IV PUSH (21:33)
[2022-01-25] VITALS (39 sets, daily range): BP systolic 122–181; BP diastolic 62–102; PULSE 50–79; RESP 13–22; TEMP 36.1–36.7; O2SAT 97–100
[2022-01-25] MEDS: SODIUM CHLORIDE 0.9% IV 1,000 ML 100 ML IV CONT (04:45)
[2022-01-25 05:59] LABS: Alanine Aminotransferase 20 U/L (4-50); Albumin Level 3.8 g/dL (3.5-5.1); Alkaline Phosphatase 88 U/L (38-126); Anion Gap 5 mmol/L (8-16); Aspartate Amino Transferase 24 U/L (17-59); Bilirubin,Total 0.4 mg/dL (0.2-1.3); Blood Urea Nitrogen 11 mg/dL (9-20); Calcium 7.8 mg/dL (8.4-10.2); Carbon Dioxide 23 mmol/L (22-30); Chloride 107 mmol/L (98-107); Cholesterol 243 mg/dL (0-200); Estimated CRCL calculation 94 ml/min; Estimated Glomerular Filt Rate > 60; Glucose 104 mg/dL (65-110); HDL Direct 30 mg/dL; Lipase 123 U/L (23-300); Magnesium 2.1 mg/dL (1.6-2.3); Potassium 4.4 mmol/L (3.4-5.0); Sodium 135 mmol/L (137-145); Triglycerides 520 mg/dL (<150)
[2022-01-25 06:05] LABS: Hematocrit 39.4 % (42.0-52.0); Hemoglobin 13.2 g/dL (14.0-18.0); Mean Corpuscular HGB Conc 33.5 g/dl (32-36); Mean Corpuscular Hemoglobin 31.1 pg (26-34); Mean Corpuscular Volume 92.9 fl (80-100); Mean Platelet Volume 8.9 fl (7.4-10.4); Platelet Count Result 205 k/mm3 (150-375); Red Blood Count 4.24 M/mm3 (4.6-6.20); Red Cell Distribution Width 13.1 % (11.5-14.5); White Blood Count 5.9 K/mm3 (4.5-10.0)
[2022-01-25 06:10] LABS: LDL Cholesterol Direct 69 mg/dL
[2022-01-25] MEDS: PANTOPRAZOLE 40 MG TABLET PO (08:45)
--- NOTE | 2022-01-25 10:35 | PM.IMPN ---
Progress Note: A&P Assessment and Plan (1) Chest pain: Qualifiers: Chest pain type: unspecified Qualified Code(s): R07.9 - Chest pain, unspecified Code(s): R07.9 - Chest pain, unspecified Status: Acute Assessment and Plan: Patient reports sudden onset of left anterior chest pain with typical symptoms Chest pain correlated to similarity with his heart attack in July 2019. EKG shows Q-waves in the septal leads consistent with infarct, age indeterminate, Initial troponin is negative however serial troponin with elevation suggestive of non ST-elevation [place] along with typical symptoms Resume aspirin and Brilinta Discuss with Cardiology Plan for heart catheterization today (2) Elevated lipase: Code(s): R74.8 - Abnormal levels of other serum enzymes Status: Acute Assessment and Plan: Lipase is quite elevated [address] of the abdomen and pelvis showed no acute findings. Patient does admit however that over the past 1 month he has had early satiety, bloating, and increased gas in addition to GERD symptoms. As he is on dual anti-platelet therapy and takes a pretty significant amount of ibuprofen, gastritis, ulcers, or the like are also possibilities. GI has been consulted Given the symptoms cardiac related, will hold off on further GI workup for now until further elucidation (3) Coronary artery disease: Onset Date: 07/2019 Code(s): I25.10 - Atherosclerotic heart disease of [place] coronary artery without angina pectoris Status: Acute Assessment and Plan: Continue beta-dacia dual anti-platelet therapy. Fasting lipids 43/30/69/520 Not on statin at home Given non ST-elevation WA will start high-dose statin He reports intolerance to Crestor in the past (4) Essential hypertension: Code(s): I10 - Essential (primary) hypertension Status: Acute Assessment and Plan: Blood pressures were reviewed and they were running a bit high on arrival, the likely due to pain and anxiety. They have since improved. Continue losartan, amlodipine, and metoprolol. Monitor. (5) Tobacco abuse: Code(s): Z72.0 - Tobacco use Status: Acute Assessment and Plan: Smoking cessation is imperative and was discussed. He declines the need for nicotine patch at this time. (6) Gastroesophageal reflux disease: Code(s): K21.9 - Gastro-esophageal reflux disease without esophagitis Status: Acute Assessment and Plan: He has been started on a PPI. If he does not have an EGD during this visit he will need GI follow-up as he has not had an endoscopy done for about 20 years at which time he was reportedly diagnosed with Tabor esophagus. 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 He was in his usual state of health when he went to work this morning. Not long prior to arrival he developed sudden onset of left-sided chest pain which started out as a dull discomfort before rapidly progressing to pretty significant heaviness. The pain radiated into his shoulder and down the left arm and improved after receiving sublingual nitroglycerin. He felt short of breath because the pain was so severe but he denies associated nausea, vomiting, sweats,
--- NOTE | 2022-01-25 10:44 | PC.NURSE ---
Spoke with NATASHA Pablo in laboratory analyst, and patient will need one time dose of: 90mg Brilinta PO, 81mg ASA PO, and 25mg Metoprolol PO now. Pt will be going to laboratory analyst for cardiac cath procedure by Dr. Rivera.
--- NOTE | 2022-01-25 10:54 | PM.CNCAR ---
Assessment and Plan Assessment and plan (1) Non-ST elevation myocardial infarction (NSTEMI): Code(s): I21.4 - Non-ST elevation (NSTEMI) myocardial infarction Status: Acute Assessment and Plan: Patient has classic symptoms of ACS related to non ST-elevation myocardial infarction. Will start 81 mg aspirin, Brilinta 90 mg p.o. q.12 hours, metoprolol tartrate 25 mg p.o. daily, losartan 25 mg p.o. daily, p.r.n. nitroglycerin. Enoxaparin or heparin drip will be initiated patient is going to the cardiac catheterization lab now. I did talk to him by the risk benefits alternatives patient is agreeable to pursue a coronary angiogram to define his anatomy. 2D echocardiogram Doppler will also be ordered and reviewed. (2) Tobacco abuse: Code(s): Z72.0 - Tobacco use Status: Acute Assessment and Plan: Tobacco abuse counseling performed. (3) Essential hypertension: Code(s): I10 - Essential (primary) hypertension Status: Acute Assessment and Plan: Above goal but will resume his home medications as above including amlodipine 10 mg p.o. daily also (4) Coronary artery disease: Onset Date: 07/2019 Code(s): I25.10 - Atherosclerotic heart disease of [place] coronary artery without angina pectoris Status: Acute Assessment and Plan: Dual anti-platelet therapy to be re-initiated. Continue meds as above (5) Paroxysmal atrial fibrillation: Code(s): I48.0 - Paroxysmal atrial fibrillation Status: Acute Assessment and Plan: Formally on Xarelto but had excessive bleeding issues in has only been on aspirin and Brilinta albeit only once daily Brilinta (6) Chest pain: Qualifiers: Chest pain type: unspecified Qualified Code(s): R07.9 - Chest pain, unspecified Code(s): R07.9 - Chest pain, unspecified Status: Acute Assessment and Plan: Related to ACS History of Present Illness History of Present Illness Consult date/time: 01/25/22 10:54 Requesting physician: Jennifer Baca PA-C Consult reason: chest pain Reason For Visit: Chest Pain Narrative: Date of service 01/25/2022 Reason consultation chest pain Requesting provider: Ashley Baca History: Patient is a 61-year-old male who follows with [facility]. He has a history of a ST elevation myocardial infarction in July 2019. He had a 90% mid RCA lesion which was stented. There was also an attempt during that same hospitalization in which there was a 2nd RCA branch which was totally occluded which most likely filled via posterior LV branches as there was [id number] collaterals. That procedure was unsuccessful the patient did sustain a cerebrovascular accident with a 2nd angiogram. He had been doing fine since that time. He did not tolerate statin therapy because of joint pains. Regardless though he had been doing fine up until yesterday morning. He had a sudden onset chest pain which radiated to the left shoulder and left shoulder blade and down the left arm. It was the same is the pain that he had 2019. Temporarily get better within came back and was very severe. EMS was called he was given aspirin and nitroglycerin. He was also having some shortness of breath at the time. With aspirin and nitroglycerin his symptoms did improve. He came to the hospital and felt much better by the time he arrived. He had another recurrence of pain in the ER which did require another nitroglycerin tablet sublingually. He had another more brief episode 8:00 p.m. yesterday evening. He has had no symptoms since. He otherwise denies any syncope, presyncope, paroxysmal nocturnal dyspnea, orthopnea, edema palpitations. He was on Xarelto a couple of years ago because of paroxysmal atrial fibrillation also but has not taken any of his Xarelto in quite some time and incidentally was only taking once daily Brilinta rather than twice daily Brilinta. He was taking his low-dose baby aspir
[2022-01-25] MEDS: TICAGRELOR 90 MG TABLET PO ×2 (10:56→20:05)
[2022-01-25] MEDS: ASPIRIN 81 MG ENTERIC TABLET PO (10:56)
[2022-01-25] MEDS: METOPROLOL TARTRATE 25 MG TABLET PO ×2 (10:56→20:05)
--- NOTE | 2022-01-25 11:41 | PC.NURSE ---
Pt to builder's labourer via stretcher with IV fluids infusing and at bedside
--- NOTE | 2022-01-25 12:03 | WPDMODSED ---
Moderate Sedation Note-Pt Data Patient Data Allergies Allergy/AdvReac Type Severity Reaction Status Date / Time No Known Allergies Allergy Unknown Verified 01/24/22 11:12 Home Medications Medication Instructions Recorded Confirmed Type Brilinta 90 mg PO HS 11/05/20 01/24/22 History amlodipine 10 mg PO HS 11/05/20 01/24/22 History aspirin 81 mg PO HS 11/05/20 01/24/22 History losartan 100 mg PO HS 11/05/20 01/24/22 History metoprolol tartrate 25 mg PO Q12H 11/05/20 01/24/22 History Current Medications: Active Medications Amlodipine Besylate (Amlodipine Besylate 5 Mg Tablet) 10 mg PO HS [facility] Aspirin (Aspirin 81 Mg Chewable Tablet) 81 mg PO DAILY@0800 [facility] Atorvastatin Calcium (Atorvastatin 40 Mg Tablet) 40 mg PO HS [facility] Sodium Chloride (Normal Saline Iv) 1,000 mls @ 100 mls/hr IV CONT .Q10H [facility] Last Admin: 01/25/22 04:45 Dose: 100 mls/hr Documented by: Losartan Potassium (Losartan Potassium 100 Mg Tablet) 100 mg PO HS [facility] Metoprolol Tartrate (Metoprolol Tartrate 25 Mg Tablet) 25 mg PO Q12HR [facility] Last Admin: 01/25/22 10:56 Dose: 25 mg Documented by: Morphine Sulfate (Morphine Sulfate (*Crx) 2 Mg/Ml Inj) 2 mg IV PUSH Q4H PRN PRN Reason: Pain Rated 7-10 Nitroglycerin (Nitroglycerin Sl 0.4 Mg Tablet) 0.4 mg SUBLINGUAL Q5MIN PRN PRN Reason: Chest Pain Last Admin: 01/24/22 18:11 Dose: 0.4 mg Documented by: Pantoprazole Sodium (Pantoprazole 40 Mg Tablet) 40 mg PO QAM [facility] Last Admin: 01/25/22 08:45 Dose: 40 mg Documented by: Perflutren Lipid Microsphere (Perflutren Lipid Microspheres 1.5 Ml Vial Diluted To 10 Ml Total Volume) 0 ml IV PUSH ONCE PRN; Protocol PRN Reason: adequate visualization Ticagrelor (Ticagrelor 90 Mg Tablet) 90 mg PO [facility] Sedation/Anesthesia: No previous sedation/anesthesia problems (including family history). [facility] Past Medical History Medical History Tabor esophagus Cerebrovascular accident (07/2019) Shower emboli post cardiac catheterization. No significant residual deficits. Coronary artery disease (07/2019) Status post SD and stent to the RCA. Essential hypertension Gastroesophageal reflux disease Hyperlipidemia Nephrolithiasis Paroxysmal atrial fibrillation Tobacco abuse Surgical History Surgical History History of arthroscopy of left knee History of cardiac catheterization History of coronary artery stent placement (07/2019) Drug-eluting stent to the mid RCA. History of cystoscopy (10/2020) With holmium laser and stone extraction with ureteral stent placement. History of repair of left rotator cuff Family History Family History Father Acute myocardial infarction Hypertension Mother Cerebrovascular accident Hypertension Sibling Hypertension Social History Social History Social History: and lives in [place] with his . 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 Smokes 0.5 to 1 packs of cigarettes a day for 40+ years. Drinks 10 to 12 beers and some shots about once or twice a month. Occasional marijuana in the form of edibles. No illicit substance use. Surrogate decision maker: Charito Rome, spouse. Code status: Full code. Spiritual care concerns: No Mod Sed Physical Exam Physical Exam Pre Procedural Exam: Normal: Airway Hours since solid foods: 8 Hours since liquid intake: 8 Mallampati Classification: class II Internal Medicine - PN: Obj Da Vital Signs Vital Signs: Vital Signs - 24 hr 01/24/22 12:04 01/24/22 12:15 01/24/22 12:16 Temperature Pulse Rate 62 72 64 Respiratory Rate 22 H 14 Blood Pressure 145/83 H Pulse Oximetry 99 98 01/24/22 12:30 01/24/22 12:31 01/24/22 12:51 Temperature Pulse Rate 63 70 68 Respiratory Rate 16 13 19 Blood Pressure 146/87 H Pulse Oximetry 98 99 98 01/24/22
--- NOTE | 2022-01-25 12:48 | WPDCARDPROC ---
Cardiac Cath Procedure Note Date of procedure:: 01/25/22 Performing physician:: Quang Rivera MD Procedure Procedure note:: CARDIAC CATHETERIZATION AND PERCUTANEOUS CORONARY INTERVENTION REPORT DATE OF PROCEDURE: 01/25/2022 INDICATION FOR PROCEDURE: acute coronary syndrome-non ST-elevation myocardial infarction BRIEF CLINICAL HISTORY: 61-year-old male with known CAD, history of inferior ST-elevation [place] status post primary PCI/ 3.0 x 28 mm Xience everolimus eluting stent placement to mid-distal RCA on 07/27/2019 at [facility] performed by [facility]; history of attempted PCI on a dual RCA branch on 07/29/2019 by the same group; hypertension, ongoing tobacco abuse. Patient was admitted to the [facility] on 01/24/2022 with complaints of chest pain. EKG showed sinus rhythm, subtle ST segment abnormality in the inferior leads. Troponins were minimally elevated at 0.05. He was referred for cardiac catheterization. Benefits and risks of the procedure were discussed with the patient in depth, and informed consent was obtained prior to the procedure. Risks of the procedure include but are not limited to vascular complications including groin hematoma, retroperitoneal bleed, vessel perforation; periprocedural [place], cardiac arrhythmias, stroke, contrast induced nephropathy, and . After discussing all the benefits, risks and alternatives, patient was willing to proceed with the procedure. PROCEDURES PERFORMED: 1. Left heart catheterization- Selective left and right coronary angiogram; left ventriculogram and hemodynamic assessment 2. Percutaneous coronary intervention- a) balloon angioplasty and stenting of subtotal occlusion in the mid RCA using a 3.0 x 15 mm Xience everolimus eluting stent; b) balloon angioplasty of InStent restenosis in mid -distal RCA using noncompliant balloon c) intravascular ultrasound ( IVUS) of stented segments of mid-distal RCA 3. Moderate sedation-CPT code 21709 MODERATE SEDATION: Midazolam 2 mg; fentanyl 50 mcg. Start time 1213 , Stop time 1242 ; Total [id number] time 31 minutes; Valentino Hernandez RN was trained observer for moderate sedation. ACCESS SITE: Right common femoral artery PROCEDURE NOTE: After obtaining informed consent, patient was brought to catheterization lab and prepped and draped in a usual sterile manner. After local anesthesia with lidocaine, right common femoral artery access was taken with micropuncture needle followed by insertion of a 5 Lebanese sheath. Selective left and right coronary angiogram was performed using 5 Lebanese JL4 and JR4 catheters respectively. Orthogonal views were taken. Next, a 5 Lebanese pigtail catheter was advanced in the LV cavity and was flushed with normal saline. LV pressure measurement was performed. After this, left ventriculogram was performed. The catheter was flushed again, and gradient across the aortic valve was measured on the pullback of the catheter. FINDINGS: LEFT MAIN CORONARY: the left main coronary is a medium to large caliber, short vessel, no significant focal stenosis. The vessel trifurcates into LAD, ramus intermedius and left circumflex branches. LEFT ANTERIOR DESCENDING ARTERY: The LAD is a medium caliber vessel, tapers distally and barely reaches LV apex. There is minimal plaque in the mid segment. The major diagonal branch is a medium caliber vessel with about 40-50% stenosis in the mid segment. RAMUS INTERMEDIUS: Medium caliber vessel, no significant focal stenosis. LEFT CIRCUMFLEX ARTERY: Medium caliber vessel . There is 30-40% stenosis in the mid segment. The vessel gives rise to small caliber OM1 branch , and medium caliber OM2 branch. RIGHT CORONARY ARTERY: A medium caliber vessel, 99% stenosis seen at the proximal edge of the previously placed mid -distal stent. There is about 50-70% InStent restenosis in the mid part of the stent. The vessel becomes small caliber vessel in the distal segment
[2022-01-25] MEDS: amLODIPine BESYLATE 5 MG TABLET 10 MG PO (14:28)
[2022-01-25] MEDS: LOSARTAN POTASSIUM 100 MG TABLET PO (14:28)
--- NOTE | 2022-01-25 14:29 | PC.NURSE ---
Cardiopulmonary Rehab Services flyer was given to patient in cardiac admission folder.
[2022-01-25] MEDS: hydrALAZINE HCL 20 MG/ML VIAL 10 MG IV PUSH (15:20)
[2022-01-25] MEDS: SODIUM CHLORIDE 0.9% IV 1,000 ML 125 ML IV CONT (16:29)
--- NOTE | 2022-01-25 17:15 | PC.NURSE ---
Pt returned from cardiac cath
--- NOTE | 2022-01-25 17:24 | SUR.PHASEII ---
1712 patient into room. bedside report done with Leia KAUR
[2022-01-25] MEDS: ATORVASTATIN 40 MG TABLET PO (20:05)
[2022-01-26] VITALS (9 sets, daily range): BP systolic 127–163; BP diastolic 65–86; PULSE 56–72; RESP 16–18; TEMP 36.7–37.1; O2SAT 95–99
--- NOTE | 2022-01-26 | ECHO_ITS ---
Patient Info Name: Jaswinder Rome Age: 61 years : 1960 Gender: Male Ht: 72 in Wt: 190 lbs BSA: 2.10 m2 HR: 61 bpm BP: 163 / 86 mmHg Heart Rhythm: Sinus Rhythm Technical Quality: Fair Exam Date: 01/26/2022 7:28 AM Exam Location: [facility] Card Pulmonary Patient Status: Inpatient Admit Date: 01/25/2022 Staff Ordering Physician: Alessandro Stanley MD Pencil Inspector: Amrita Renteria RDCS Attending Provider: Moisés Bush MD Referring Physician: Lizeth AGUILAR; Exam Type: CA echo doppler color flow Study Info Indications - nstemi Complete two-dimensional, color flow and Doppler transthoracic echocardiogram is performed. Summary 1. Complete two-dimensional, color flow and Doppler transthoracic echocardiogram is performed. 2. Left ventricular chamber dimension is normal. 3. Left ventricular systolic function is normal, estimated at 65-70%. 4. There is mildly increased left ventricular wall thickness. 5. The left ventricular diastolic function is grade I diastolic dysfunction. 6. There is mild tricuspid valve regurgitation. Left Ventricle Left ventricular chamber dimension is normal. Left ventricular systolic function is normal, estimated at 65-70%. There is mildly increased left ventricular wall thickness. The left ventricular diastolic function is grade I diastolic dysfunction. Right Ventricle Right ventricular chamber dimension is normal. Right ventricular systolic function is normal. Left Atria Left atrial chamber dimension is normal. Right Atria Right atrial chamber dimension is normal. Atrial Septum Intact interatrial septum visualized by color flow imaging. Aortic Valve The aortic valve is trileaflet. There is mild aortic valve sclerosis. There is no aortic valve stenosis. There is trace aortic valve regurgitation. Pulmonic Valve The pulmonic valve is normal. There is no pulmonic valve stenosis. There is trace pulmonic regurgitation. Mitral Valve The mitral valve has normal leaflets. There is no mitral valve stenosis. There is trace mitral valve regurgitation. Tricuspid Valve The tricuspid valve leaflets are normal. There is no significant tricuspid valve stenosis. There is mild tricuspid valve regurgitation. No pulmonary hypertension, estimated pulmonary arterial systolic pressure is 33 mmHg. Pericardium/Pleural The pericardium appears normal. There is trivial pericardial effusion. Inferior Vena Cava Normal inferior vena cava with <50% collapse upon inspiration consistent with elevated right atrial pressure, 10 mmHg. Aorta The aortic root size at the sinus of Valsalva is normal. Left Ventricular Outflow Tract Name Value Normal LVOT 2D LVOT Diameter 2.1 cm LVOT Doppler LVOT Peak Gradient 5 mmHg LVOT Mean Gradient 2 mmHg LVOT VTI 23 cm LVOT VTI/AV VTI Ratio 0.8 LVOT Stroke Volume 77 ml LVOT CO 4.4 l/min LVOT CI 2.1 l/min/
[2022-01-26] MEDS: SODIUM CHLORIDE 0.9% IV 1,000 ML 100 ML IV CONT (03:04)
--- NOTE | 2022-01-26 03:04 | PC.NURSE ---
Patient's IV intake is over by approximately 1,000mL. The 100mL/hr infusion was not running during the time that the 125mL/hr infusion was running. New bag scanned and infusing at 100mL/hr @02:53. Unable to fix I/O through DEC.
[2022-01-26] MEDS: EZETIMIBE 10 MG TABLET PO (09:00)
[2022-01-26] MEDS: METOPROLOL TARTRATE 12.5 MG TABLET PO (09:00)
[2022-01-26] MEDS: PANTOPRAZOLE 40 MG TABLET PO (09:01)
[2022-01-26] MEDS: ASPIRIN 81 MG CHEWABLE TABLET PO (09:03)
--- NOTE | 2022-01-26 11:19 | PM.DS ---
DS: Admitting Diagnosis Discharge Date 01/26/22 Admitting Diagnosis Chest Pain NSTEMI DS: Discharge Diagnosis Discharge Diagnosis (1) Non-ST elevation myocardial infarction (NSTEMI): Code(s): I21.4 - Non-ST elevation (NSTEMI) myocardial infarction Status: Acute (2) Gastroesophageal reflux disease: Code(s): K21.9 - Gastro-esophageal reflux disease without esophagitis Status: Acute DS: Summary Hospital Course Hospital Course: 61-year-old male smoker with coronary artery disease status post drug-eluting stent to the mid right coronary artery in July 2019, paroxysmal atrial fibrillation, hypertension, 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 Found to have NSTEMI. Cardiology was consulted, underwent cardiac cath Cath report CAD- a) 99% stenosis at the proximal edge of previously placed stent in the mid RCA; diffuse 50-70% InStent restenosis mid-distal RCA. b) mild plaque mid LAD; about 50% stenosis major diagonal branch c) 40-50% stenosis mid LCX 2. Mild LV systolic LV dysfunction, ejection fraction about 45%; LVEDP 11 mmHg. 3. PCI- IVUS guided PCI of high-grade stenosis in the mid RCA and diffuse ISR using 3.0 x 15 mm Xience everolimus eluting stent in an overlapping fashion with the previously placed stent followed by angioplasty using noncompliant balloon with good angiographic results. Post procedure stay was uneventful. Plan to discharge on DAPT, along with statin counselled for smoking cessation. Advised to follow up with cardiology Will need to follow up with GI as outpatient with h/o Barett's esophagus and GERD symptoms. Discharged on PPI as well. Discharged home in stable condition. Time spent discussing smoking cessation with patient: 3 to 10 minutes Status at Discharge Functional status at discharge: independent ambulation Overall status at discharge: patient is back to baseline Time Spent with Patient Time attestation: Total time spent providing and/or coordinating discharge services: >30 mins Time spent: Greater than 30 minutes Exam Const: General: no acute distress HENMT: Mouth: Yes Abnormal oral and palatal mucosa present Eyes: General: appearance normal, both eyes and all related structures Neck: Neck: supple Resp: Auscultation: clear to auscultation bilaterally Cardio: Rate: regular rate Rhythm: regular rhythm GI: GI Palp: Yes Soft to palpation Auscultation: normal bowel sounds Skin: General skin exam: normal color Psych: Mental Status: mental status grossly normal DS: Data Data Completed and Pending Completed studies during hospitalization: Echo Procedures/Treatments: Cardiac Cath Discharge Plan Discharge Attending physician on discharge: Barbara Ledezma Consulting providers: Shaun An ; Hoang Castrejon Discharging Clinician: Barbara Ledezma Anticipated Discharge Date/Time: 01/26/22 11:15 Patient Disposition: Home, Self-Care Activity: other - see discharge instructions Diet: heart healthy Discharge Instructions: [facility] [address] [place] [address] DISCHARGE INSTRUCTIONS - POST PCI Activity 1. No driving until 01/28/22. 2. No lifting, pushing or pulling more than 10 pounds for 1 week. 3. No strenuous exercise or activity (including sexual activity) until you are released to do so. 4. M
--- NOTE | 2022-01-26 12:03 | PM.PNCARD ---
Progress Note: A&P Assessment and Plan (1) Non-ST elevation myocardial infarction (NSTEMI): Code(s): I21.4 - Non-ST elevation (NSTEMI) myocardial infarction Status: Acute Assessment and Plan: Patient has classic symptoms of ACS related to non ST-elevation myocardial infarction. Continue dual anti-platelet therapy. Continue metoprolol at 25 mg p.o. b.i.d.. Continue losartan. Continue amlodipine. Patient had not been on a statin prior to coming to the hospital. Will discontinue Zetia to this point. A PCSK9 inhibitor or nexletol would be more appropriate rather than Zetia if needed. Outpatient cardiac rehab. Outpatient follow-up with Dr. Brown at [facility] in [place]. No lifting anything over 10 lb for 7-10 days. No sex with the same timeframe. Patient may start Scharff but no soaking in water. He has any chest pain, shortness breath 3 other cardiac signs or symptoms that are worrisome or any significant groin pain or active bleeding, he should call 911 (2) Tobacco abuse: Code(s): Z72.0 - Tobacco use Status: Acute Assessment and Plan: Tobacco abuse counseling performed. (3) Essential hypertension: Code(s): I10 - Essential (primary) hypertension Status: Acute Assessment and Plan: Continue current regimen (4) Coronary artery disease: Onset Date: 07/2019 Code(s): I25.10 - Atherosclerotic heart disease of [place] coronary artery without angina pectoris Status: Acute Assessment and Plan: Dual anti-platelet therapy to be re-initiated. Continue meds as above (5) Paroxysmal atrial fibrillation: Code(s): I48.0 - Paroxysmal atrial fibrillation Status: Acute Assessment and Plan: Formally on Xarelto but had excessive bleeding issues in has only been on aspirin and Brilinta albeit only once daily Brilinta (6) Chest pain: Qualifiers: Chest pain type: unspecified Qualified Code(s): R07.9 - Chest pain, unspecified Code(s): R07.9 - Chest pain, unspecified Status: Acute Assessment and Plan: Related to ACS Subjective Date/time seen: 01/26/22 12:03 Interval history: HPI:This is a pleasant 61-year-old male smoker with coronary artery disease status post drug-eluting stent to the mid right coronary artery in July 2019, paroxysmal atrial fibrillation, hypertension, 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 Date of service 01/26/2022: Status post PCI to the RCA. Feels great. No groin pain, chest pain, shortness of breath this morning. Review of Systems Review of Systems: All systems reviewed & are unremarkable except as noted in HPI and below Constitutional: Constitutional: Denies fatigue, Denies headache(s) and Denies weakness Eyes: Eyes: Denies blurry vision ENT: Reports Normal hearing present, Denies headache(s) and Denies neck pain Cardiovascular: Cardiovascular: Denies chest pain and Denies dyspnea Respiratory: Respiratory: Reports dyspnea Gastrointestinal: Gastrointestinal: Denies abdominal pain Genitourinary: Genitourinary: Denies dysuria Musculoskeletal: Musculoskeletal: Denies neck pain Integumentary/Breasts: Skin/Breast: Denies dry skin Neurologic: Reports Normal hearing present, Denies headache(s) and Denies weakness Psychiatric: Psychiatric: Denies anxiety Endocrine: Endocrine: Denies fatigue Hematologic/Lymphatic: Hematologic/Lymphatic: Denies easy bleeding Allergic/Immunologic: Allergic/Immunologic: Denies GI upset with certain foods Exam Narrative: Awake alert. Appears to be in no acute distress. Appears stated age Const: General: comfortable and no acute distress HENMT: General nose exam: Normal nares present Eyes: Sclera: sclerae normal Neck: Neck: supple and no JVD Chest: Other:
== END 2022-01-26 12:08 | disposition home or self-care (01) | DRG 246 ==
LOC: ANHED 14:36 → ANHIMU 14:57
PROVIDERS: Emergency Medicine; Internal Medicine Cardiovascular Disease; Physician Assistant; Admitting Provider Hospitalist; Emergency Provider Emergency Medicine; PCP Internal Medicine; Visit Provider Internal Medicine
PROC: 4A023N7 Measurement of Cardiac Sampling and Pressure, Left Heart, Percutaneous Approach (ICD-10-PCS; CPT 93452; principal; 2022-01-25 12:05)
PROC: 027034Z Dilation of Coronary Artery, One Artery with Drug-eluting Intraluminal Device, Percutaneous Approach (ICD-10-PCS; 2022-01-25 12:05)
PROC: 027034Z Dilation of Coronary Artery, One Artery with Drug-eluting Intraluminal Device, Percutaneous Approach (ICD-10-PCS; 2022-01-25 12:05)
DX: T82.855A Stenosis of coronary artery stent, initial encounter (principal); I21.A9 Other myocardial infarction type; I25.10 Atherosclerotic heart disease of native coronary artery without angina pectoris; K21.9 Gastro-esophageal reflux disease without esophagitis; Z20.822 Contact with and (suspected) exposure to COVID-19; I10 Essential (primary) hypertension; E78.5 Hyperlipidemia, unspecified; F17.210 Nicotine dependence, cigarettes, uncomplicated; I48.0 Paroxysmal atrial fibrillation; I25.2 Old myocardial infarction; Z95.5 Presence of coronary angioplasty implant and graft; Z86.73 Personal history of transient ischemic attack (TIA), and cerebral infarction without residual deficits; Z87.442 Personal history of urinary calculi; Z79.02 Long term (current) use of antithrombotics/antiplatelets; Z79.82 Long term (current) use of aspirin
CPT/HCPCS: 36415; 71045; 74177; 80053; 80061; 83690; 83735; 84484; 85025; 85027; 85610; 85730; 92978; 93005; 93306; 93458; 96360; 96361; 96374; 99239; 99285; A9270; C1725; C1753; C1769; C1874; C1887; C1894; C9113; C9600; C9803; G0378; J0360; J0583; J1644; J2250; J3010; J7030; Q9967; U0003; U0005